=== PATIENT | male | born 1960 | race Caucasian/White ===

== ENCOUNTER 2018-08-05 13:43 | Emergency (ER) | payer MEDICAID ==
[~2018-08-05 13:43] MED LIST: SULFAMETHOX/TMP 800/160 MG 1 TAB PO SCH
--- NOTE | 2018-08-05 14:31 | EDPHY ---
H & P Stated Complaint: Finished staff inf [place] x1wk, erythema/swelling/no drainage or other s/s Time Seen by Provider: 08/05/18 14:16 HPI/ROS: CHIEF COMPLAINT: Gluteal infection HISTORY OF PRESENT ILLNESS: The patient presents the ED with tenderness and swelling to his right gluteal area for the past week. The patient was recently treated for a MRSA infection which manifest as diffuse draining papular areas of cellulitis. The patient has been off antibiotics for the past week. He is currently staying in a homeless care home. He denies any fever, abdominal pain or vomiting. The patient denies any additional acute medical complaints. The patient is receiving primary care currently through the [facility]. REVIEW OF SYSTEMS: A comprehensive 10 point review of systems is otherwise negative aside from elements mentioned in the history of present illness. Source: Patient Exam Limitations: No limitations - Personal History Current Tetanus/Diphtheria Vaccine: No - Medical/Surgical History Hx Asthma: No Hx Chronic Respiratory Disease: No Hx Diabetes: No Hx Cardiac Disease: No Hx Renal Disease: No Hx Cirrhosis: No Hx Alcoholism: No Hx HIV/AIDS: No Hx Splenectomy or Spleen Trauma: No Other PMH: Staff inf 2018, - Social History Smoking Status: Heavy smoker - Physical Exam Exam: General Appearance: Alert, no distress Eyes: Pupils equal and round no pallor or injection ENT, Mouth: Mucous membranes moist Respiratory: There are no retractions, lungs are clear to auscultation Cardiovascular: Regular rate and rhythm Gastrointestinal: Abdomen is soft and nontender, no masses, bowel sounds normal Neurological: A&O, normal motor function, normal sensory exam, normal cranial nerves Skin: Diffuse well healing areas of focal cellulitis noted to the extremities, acute cellulitis noted to the gluteal area with area of from tenderness, no fluctuance Musculoskeletal: Neck is supple nontender Extremities: symmetrical, full range of motion Constitutional: Initial Vital Signs Temperature (C) 36.8 C 08/05/18 14:06 Heart Rate 89 08/05/18 14:06 Respiratory Rate 18 08/05/18 14:06 Blood Pressure 163/94 H 08/05/18 14:06 O2 Sat (%) 94 08/05/18 14:06 O2 Delivery Mode Room Air Allergies/Adverse Reactions: No Known Allergies Allergy (Unverified 08/05/18 14:06) Medical Decision Making ED Course/Re-evaluation: Bedside ultrasound demonstrates no obvious fluid collection. The patient does have some induration noted in the soft tissues. The patient will be restarted on Bactrim. He is advised to apply warm compresses to the area several times a day for the next several days. Patient has been instructed to return to the ED for markedly increasing pain, redness or swelling. Plan for a wound check at [facility] later this week. Departure - Departure Disposition: Home, Routine, Self-Care Clinical Impression: Cellulitis Qualifiers: Site of cellulitis: buttock Qualified Code(s): L03.317 - Cellulitis of buttock Condition: Good Instructions: Cellulitis (ED) Additional Instructions: 1. Warm compresses to gluteal area 4 times a day 2. Begin antibiotics as prescribed 3. Return to the ED for increasing pain, redness or swelling. 4. Please schedule a follow-up appointment to be seen at [facility] this week for a recheck. Referrals: [facility],. [Clinic] - As per Instructions
[2018-08-05] MEDS ORDERED: SULFAMETHOX/TMP 800/160 MG 1 TAB PO ONE (14:35)
[2018-08-05 15:18] VITALS: BP 155/91
== END 2018-08-05 15:19 | disposition home or self-care (01) ==
LOC: EDBD
DX: L03.317 Cellulitis of buttock (principal)